=== PATIENT | female | born 1995 | race Caucasian/White ===

== ENCOUNTER 2018-11-16 11:32 | Emergency (ER) | payer SELFPAY ==
[2018-11-16] MEDS ORDERED: NA CHLORIDE 0.9% 1,000 ML ONE (12:16)
[2018-11-16 12:18] LABS: Absolute Monocytes 0.4 K/uL (0.1-1.3); Absolute Neutrophil 6.4 K/uL (1.8-8.0); Basophils % 0.4 % (0-1.3); Eosinophils % 1.7 % (0-4.4); Hematocrit 40.1 % (36.0-45.0); Lymphocytes % 22.4 % (15.3-44.8); MPV 8.9 fL (7.6-11.3); Monocytes % 4.3 % (3.3-12.3); RBC Red Blood Cell Count 4.86 M/uL (3.86-4.86)
[2018-11-16 12:22] LABS: Urine Blood NEGATIVE (NEG); Urine Glucose NEGATIVE (NEG); Urine Protein NEGATIVE (NEG); Urine Specific Gravity 1.025 (1.005-1.030)
[2018-11-16 12:35] LABS: ALT/SGPT 32 U/L (12-78); AST/SGOT 15 U/L (15-37); Albumin 3.7 g/dL (3.4-5.0); Alkaline Phosphatase 75 U/L (45-117); BUN Blood Urea Nitrogen 8 mg/dL (7-18); Bicarbonate 23 mmol/L (21-32); Bilirubin Direct 0.1 mg/dL (0-0.2); Bilirubin Total 0.4 mg/dL (0.2-1.0); Glucose Level 85 mg/dL (74-106); Lipase 100 U/L (73-393); Potassium 3.7 mmol/L (3.5-5.1); Protein, Total 7.6 g/dL (6.4-8.2); Sodium Level 143 mmol/L (136-145)
[2018-11-16] MEDS ORDERED: MORPHINE 4 MG/ML SYR ONE (12:42)
[2018-11-16] MEDS ORDERED: ONDANSETRON 4 MG/2 ML VIAL ONE (12:42)
--- NOTE | 2018-11-16 12:53 | ER ---
Nurse's Notes [facility] Name: Nadia Dumont Age: 23 yrs Sex: Female : 1995 Arrival Date: 11/16/2018 Time: 11:34 Bed 18 Private MD: Diagnosis: Abdominal tenderness;Vomiting;Urinary tract infection, site not specified Presentation: 11/16 11:34 Presenting complaint: EMS states: abdominal pain for 3 days with nausea, denies em vomiting or fever, today had blood in urine, complains of dysuria, VSS. Transition of care: patient was not received from another setting of care. Onset of symptoms was November 13, 2018. Risk Assessment: Do you want to hurt yourself or someone else? Patient reports no desire to harm self or others. Initial Sepsis Screen: Does the patient meet any 2 criteria? No. Patient's initial sepsis screen is negative. Does the patient have a suspected source of infection? Yes: Dysuria/Frequency/Urgency/UTI. Care prior to arrival: None. 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 - Social history:: Smoking status: Patient/guardian denies using tobacco. - Ebola Screening: : Patient negative for fever greater than or equal to 101.5 degrees Fahrenheit, and additional compatible Ebola Virus Disease symptoms Patient denies exposure to infectious person Patient denies travel to an Ebola-affected area in the 21 days before illness onset No symptoms or risks identified at this time. Screenin:40 Abuse screen: Denies threats or abuse. Nutritional screening: No deficits noted. em Tuberculosis screening: No symptoms or risk factors identified. Fall Risk None identified. Assessment: 11:40 General: Appears in no apparent distress. comfortable, Behavior is calm, cooperative, em Denies fever. Pain: Complains of pain in left lower quadrant and right lower quadrant Pain currently is 7 out of 10 on a pain scale. Pain began 2-3 days ago. Neuro: Level of Consciousness is awake, alert, obeys commands, Oriented to person, place, time, situation. Cardiovascular: Capillary refill < 3 seconds Patient's skin is warm and dry. Respiratory: Airway is patent Respiratory effort is even, unlabored, Respiratory pattern is regular, symmetrical. GI: Abdomen is flat, Bowel sounds present X 4 quads. Abd is soft X 4 quads Abdomen is tender to palpation in right upper quadrant and right lower quadrant Reports diarrhea, nausea, Patient currently denies vomiting. : Reports burning with urination, hematuria. Derm: Skin is intact, is healthy with good turgor, Skin is pink, warm \T\ dry. Musculoskeletal: Capillary refill < 3 seconds, Range of motion: intact in all extremities. 11:55 Reassessment: Patient appears in no apparent distress at this time. I agree with above iw assessment by Benjy Nowak LVN. 12:50 Reassessment: pt request nausea and pain medication, provider notified, new medication em orders received. 13:05 Reassessment: pending completion of IV abx. em 14:19 Reassessment: Patient appears in no apparent distress at this time. Patient and/or em family updated on plan of care and expected duration. Pain level reassessed. Patient is alert, oriented x 3, equal unlabored respirations, skin warm/dry/pink. rates pain 1/10 Patient states feeling better. Patient states symptoms have improved. Vital Signs: 11:37 BP 130 / 87; Pulse 87; Resp 18; Pulse Ox 99% on R/A; em 12:30 BP 122 / 87; Pulse 78; Resp 18; Pulse Ox 99% on R/A; Pain 7/10; em 13:45 BP 121 / 85; Pulse 56; Resp 18; Pulse Ox 99% on R/A; em ED Course: 11:34 Patient arrived in ED. em 11:35 Sergio Alvarado MD is Attending Physician. sonia 11:37 Arm band placed on. em 11:40 Triage completed. iw 11:40 Patient has correct armband on for positive identification. Placed in gown. Bed in low em position. Call light in reach. Side rails up X2. Pulse ox on. NIBP on. 11:54 Benjy Nowak LVN is Primary Nurse. em 12:20 Initial lab(s) drawn, by me, sent to lab. Inserted saline lock: 20 gauge in right em antecubital area, using aseptic technique. Blood collected. 14:19 No provider procedures requiring assistance completed. IV discontinued, intact, em bleeding controlled, No redness/swelling at site. Pressure dressing applied. Administered Medications: 12:16 Drug: NS 0.9% 1000 ml Route: IV; Rate: 1 bolus; Site: right antecubital; em 13:36 Follow up: IV Status: Completed infusion; IV Intake: 1000ml em 12:54 Drug: Zofran 4 mg Route: IVP; Site: right antecubital; iw 13:36 Follow up: Response: No adverse reaction em 12:57 Drug: morphine 4 mg Route: IVP; Site: right antecubital; iw 13:36 Follow up: Response: No adverse reaction; Pain is decreased em 13:00 Drug: Cipro 400 mg Volume: 200 ml; Route: IVPB; Infused Over: 60 mins; Site: right em antecubital; 14:15 Follow up: Response: No adverse reaction; IV Status: Completed infusion; IV Intake: em 100ml Intake: 13:36 IV: 1000ml; Total: 1000ml. em 14:15 IV: 100ml; Total: 1100ml. em Outcome: 12:51 Discharge ordered by MD. scott 14:19 Discharged to home ambulatory. em 14:19 Condition: good 14:19 Discharge instructions given to patient, Instructed on discharge instructions, follow up and referral plans. medication usage, Demonstrated understanding of instructions, follow-up care, medications, Prescriptions given X 2. 14:24 Patient left the ED. em Signatures: Sergio Alvarado MD MD cha Munoz, Edgar, ACCOUNTING INSTRUCTOR ACCOUNTING INSTRUCTOR em Anne Hatch, RN RN iw
--- NOTE | 2018-11-16 12:53 | EDPHYS ---
Physician Documentation [facility] Name: Nadia Dumont Age: 23 yrs Sex: Female : 1995 Arrival Date: 11/16/2018 Time: 11:34 Bed 18 Private MD: ED Physician Sergio Alvarado HPI: 11/16 11:50 This 23 yrs old Female presents to ER via EMS with complaints of Abdominal sonia Pain. 11:50 The patient presents with abdominal pain in the lower abdomen. Onset: The sonia symptoms/episode began/occurred 3 day(s) ago. The symptoms do not radiate. Associated signs and symptoms: none. The symptoms are described as crampy. Modifying factors: The symptoms are alleviated by nothing, the symptoms are aggravated by movement. Severity of pain: At its worst the pain was mild moderate in the emergency department the pain has improved mildly. The patient has not experienced similar symptoms in the past. 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 - Social history:: Smoking status: Patient/guardian denies using tobacco. - Ebola Screening: : Patient negative for fever greater than or equal to 101.5 degrees Fahrenheit, and additional compatible Ebola Virus Disease symptoms Patient denies exposure to infectious person Patient denies travel to an Ebola-affected area in the 21 days before illness onset No symptoms or risks identified at this time. ROS: 11:50 Constitutional: Negative for fever, chills, and weight loss, Eyes: Negative for injury, sonia pain, redness, and discharge, ENT: Negative for injury, pain, and discharge, Neck: Negative for injury, pain, and swelling, Cardiovascular: Negative for chest pain, palpitations, and edema, Respiratory: Negative for shortness of breath, cough, wheezing, and pleuritic chest pain, Back: Negative for injury and pain, : Negative for injury, bleeding, discharge, and swelling, MS/Extremity: Negative for injury and deformity, Skin: Negative for injury, rash, and discoloration, Neuro: Negative for headache, weakness, numbness, tingling, and seizure, Psych: Negative for depression, anxiety, suicide ideation, homicidal ideation, and hallucinations, Allergy/Immunology: Negative for hives, rash, and allergies, Endocrine: Negative for neck swelling, polydipsia, polyuria, polyphagia, and marked weight changes, Hematologic/Lymphatic: Negative for swollen nodes, abnormal bleeding, and unusual bruising. 11:50 Abdomen/GI: Positive for abdominal pain, of the right lower quadrant and left lower quadrant. Exam: 11:50 Constitutional: This is a well developed, well nourished patient who is awake, alert, sonia and in no acute distress. Head/Face: Normocephalic, atraumatic. Eyes: Pupils equal round and reactive to light, extra-ocular motions intact. Lids and lashes normal. Conjunctiva and sclera are non-icteric and not injected. Cornea within normal limits. Periorbital areas with no swelling, redness, or edema. ENT: Nares patent. No nasal discharge, no septal abnormalities noted. Tympanic membranes are normal and external auditory canals are clear. Oropharynx with no redness, swelling, or masses, exudates, or evidence of obstruction, uvula midline. Mucous membranes moist. Neck: Trachea midline, no thyromegaly or masses palpated, and no cervical lymphadenopathy. Supple, full range of motion without nuchal rigidity, or vertebral point tenderness. No Meningismus. Chest/axilla: Normal chest wall appearance and motion. Nontender with no deformity. No lesions are appreciated. Cardiovascular: Regular rate and rhythm with a normal S1 and S2. No gallops, murmurs, or rubs. Normal PMI, no JVD. No pulse deficits. Respiratory: Lungs have equal breath sounds bilaterally, clear to auscultation and percussion. No rales, rhonchi or wheezes noted. No increased work of breathing, no retractions or nasal flaring. Back: No spinal tenderness. No costovertebral tenderness. Full range of motion. Skin: Warm, dry with normal turgor. Normal color with no rashes, no lesions, and no evidence of cellulitis. MS/ Extremity: Pulses equal, no cyanosis. Neurovascular intact. Full, normal range of motion. Neuro: Awake and alert, GCS 15, oriented to person, place, time, and situation. Cranial nerves II-XII grossly intact. Motor strength 5/5 in all extremities. Sensory grossly intact. Cerebellar exam normal. Normal gait. Psych: Awake, alert, with orientation to person, place and time. Behavior, mood, and affect are within normal limits. 11:50 Abdomen/GI: Inspection: abdomen appears normal, Bowel sounds: normal, Liver: no appreciated palpable abnormalities, Hernia: not appreciated. Vital Signs: 11:37 BP 130 / 87; Pulse 87; Resp 18; Pulse Ox 99% on R/A; em 12:30 BP 122 / 87; Pulse 78; Resp 18; Pulse Ox 99% on R/A; Pain 7/10; em 13:45 BP 121 / 85; Pulse 56; Resp 18; Pulse Ox 99% on R/A; em MDM: 11:35 Patient medically screened. [facility] 11:59 Data reviewed: vital signs, nurses notes, lab test result(s). [facility] 11/16 11:48 Order name: Basic Metabolic Panel; Complete Time: 12:52 [facility] 11/16 11:49 Order name: Basic Metabolic Panel [facility] 11/16 11:49 Order name: CBC with Diff; Complete Time: 12:32 [facility] 11/16 11:49 Order name: Creatinine for Radiology; Complete Time: 12:52 [facility] 11/16 11:49 Order name: Hepatic Function; Complete Time: 12:52 [facility] 11/16 11:49 Order name: Lipase; Complete Time: 12:52 [facility] 11/16 11:49 Order name: IV Saline Lock; Complete Time: 12:15 [facility] 11/16 12:21 Order name: Urine Dipstick--Ancillary (enter results); Complete Time: 12:32 11/16 12:21 Order name: Urine --Ancillary (enter results); Complete Time: 12:32 11/16 12:33 Order name: Urine Culture [facility] 11/16 11:49 Order name: Labs collected and sent; Complete Time: 12:15 [facility] 11/16 11:49 Order name: Urine Dipstick-Ancillary (obtain specimen); Complete Time: 11:53 [facility] 11/16 11:49 Order name: Urine Test (obtain specimen); Complete Time: 11:53 [facility] Administered Medications: 12:16 Drug: NS 0.9% 1000 ml Route: IV; Rate: 1 bolus; Site: right antecubital; em 13:36 Follow up: IV Status: Completed infusion; IV Intake: 1000ml em 12:54 Drug: Zofran 4 mg Route: IVP; Site: right antecubital; iw 13:36 Follow up: Response: No adverse reaction em 12:57 Drug: morphine 4 mg Route: IVP; Site: right antecubital; iw 13:36 Follow up: Response: No adverse reaction; Pain is decreased em 13:00 Drug: Cipro 400 mg Volume: 200 ml; Route: IVPB; Infused Over: 60 mins; Site: right em antecubital; 14:15 Follow up: Response: No adverse reaction; IV Status: Completed infusion; IV Intake: em 100ml Disposition: 11/16/18 12:51 Discharged to Home. Impression: Abdominal tenderness, Vomiting, Urinary tract infection, site not specified. - Condition is Stable. - Discharge Instructions: Abdominal Pain, Adult, Diarrhea, Adult, Nausea and Vomiting, Adult, Urinary Tract Infection, Adult, Nausea and Vomiting, Adult, [id number], Urinary Tract Infection, Adult, [id number], Abdominal Pain, Adult, [id number]. - Prescriptions for Cipro 250 mg Oral Tablet - take 1 tablet by ORAL route every 12 hours; 14 tablet. Zofran 4 mg Oral Tablet - take 1 tablet by ORAL route every 12 hours As needed; 12 tablet. - Medication Reconciliation Form, Thank You Letter, Antibiotic Education, Prescription Opioid Use form. - Follow up: Private Physician; When: 2 - 3 days; Reason: Recheck today's complaints, Continuance of care, Re-evaluation by your physician. - Problem is new. - Symptoms have improved. Signatures: Dispatcher [employer] EDID Sergio Alvarado MD MD cha Munoz, Edgar, UTILITIES AND MAINTENANCE SUPERVISOR UTILITIES AND MAINTENANCE SUPERVISOR em Anne Hatch, AILEEN RN iw Corrections: (The following items were deleted from the chart) 14:24 12:51 11/16/2018 12:51 Discharged to Home. Impression: Abdominal tenderness; Vomiting; em Urinary tract infection, site not specified. Condition is Stable. Discharge Instructions: Abdominal Pain, Adult, Diarrhea, Adult, Nausea and Vomiting, Adult, Urinary Tract Infection, Adult, Nausea and Vomiting, Adult, [id number], Urinary Tract Infection, Adult, [id number], Abdominal Pain, Adult, [id number]. Prescriptions for Cipro 250 mg Oral Tablet - take 1 tablet by ORAL route every 12 hours; 14 tablet, Zofran 4 mg Oral Tablet - take 1 tablet by ORAL route every 12 hours As needed; 12 tablet. and Forms are Medication Reconciliation Form, Thank You Letter, Antibiotic Education, Prescription Opioid Use. Follow up: Private Physician; When: 2 - 3 days; Reason: Recheck today's complaints, Continuance of care, Re-evaluation by your physician. Problem is new. Symptoms have improved. sonia
[2018-11-16] MEDS ORDERED: CIPROFLOXACIN 400mg IV 400 MG/200 ML BAG IV ONE (13:06)
== END 2018-11-16 14:24 | disposition home or self-care (01) ==
LOC: ER 11:32
DX: N39.0 Urinary tract infection, site not specified (principal); R11.10 Vomiting, unspecified
CPT/HCPCS: 36415; 80048; 80076; 81003; 81025; 83690; 85025; 87086; 87088; 96361; 96365; 96375; 99284; J0744; J2405; J7030